=== PATIENT | male | born 1950 | race African-American/Black ===

== ENCOUNTER 2018-03-20 22:53 | Emergency (ER) | payer MEDICARE, MEDICAID ==
[~2018-03-20] VITALS: Ht 185.4 cm; Wt 89.0 kg
[2018-03-20 23:59] LABS: CLARITY URINE CLEAR (CLEAR); COLOR URINE YELLOW (YELLOW); KETONES URINE TRACE (NEGATIVE); LEUKOCYTE ESTERASE URINE 2+ (NEGATIVE); NITRITE URINE NEGATIVE (NEGATIVE); OCCULT BLOOD URINE NEGATIVE (NEGATIVE); PH URINE 5.5 (4.5-8.0); PROTEIN URINE NEGATIVE (NEGATIVE); SPECIFIC GRAVITY URINE 1.019 (1.005-1.030); UROBILINOGEN URINE 0.2 E.U./dL (0.2-1.0)
[2018-03-21] MEDS ORDERED: LISI10TA5 MT (00:49)
[2018-03-21] MEDS ORDERED: IBUPROFEN 800MG TABLET PO ONE (02:00)
[2018-03-21 02:36] VITALS: BP 154/77
== END 2018-03-21 02:37 | disposition home or self-care (01) ==
LOC: ER 22:53
DX: N45.1 Epididymitis (principal); I10 Essential (primary) hypertension
CPT/HCPCS: 76870; 87077; 87186; 93976; 99285